=== PATIENT | female | born 1960 | race Caucasian/White ===

== ENCOUNTER 2019-08-05 09:03 | Day surgery (SDC) | payer OTHER ==
[2019-07-26 16:52] VITALS: BMI 24.7
--- NOTE | 2019-08-05 10:17 | OP ---
Operative Note - Note: Operative Date: 08/05/19 Pre-Operative Diagnosis: Left medial meniscus tear Operation: Left medial meniscectomy Post-Operative Diagnosis: Same as Pre-op Surgeon: Salomón aY Hog Cutter: Dawn Panchal Anesthesia: General Operative Report Dictated: Yes
[2019-08-05] MEDS ORDERED: BUPIVACAINE HCL 0.25% 125 MG/50 ML VIAL ONE (11:22)
[2019-08-05] MEDS ORDERED: MIDAZOLAM HCL 2 MG/2 ML SINGLE DOSE VIAL ONE (11:56)
[2019-08-05] MEDS ORDERED: LIDOCAINE HCL/PF 2% SDV 5ML VIAL ONE (11:57)
[2019-08-05] MEDS ORDERED: PROPOFOL 20 ML ONE ×2 (11:57)
[2019-08-05] MEDS ORDERED: ONDANSETRON 4 MG/2 ML VIAL ONE ×2 (12:17→12:52)
[2019-08-05] MEDS ORDERED: DEXAMETHASONE SOD PHOSPHATE 4 MG/1 ML VIAL ONE (12:17)
[2019-08-05] MEDS ORDERED: CLINDAMYCIN PHOSPHATE 600 MG/4 ML VIAL ONE ×2 (12:17)
[2019-08-05] MEDS ORDERED: KETOROLAC TROMETHAMINE 30 MG/1 ML VIAL ONE (12:17)
[2019-08-05] MEDS ORDERED: BUPIVACAINE HCL/PF 0.25% (2.5MG/ML) 10 ML VIAL IJ ONE (12:41)
[2019-08-05] MEDS ORDERED: oxyCODONE HCL 5 MG TABLET PO PRN ×2 (13:50)
[2019-08-05] MEDS ORDERED: ONDANSETRON 4 MG/2 ML VIAL IVPUSH PRN (13:50)
[2019-08-05] MEDS ORDERED: ACETAMINOPHEN 325 MG TABLET (FP) PO PRN (13:50)
--- NOTE | 2019-08-05 13:56 | OP ---
DATE OF OPERATION: 08/05/2019 POSTOPERATIVE DIAGNOSIS: Left knee medial meniscal tear. POSTOPERATIVE DIAGNOSIS: Left knee medial meniscal tear. PROCEDURE: Left knee arthroscopy with partial medial meniscectomy. SURGEON: Salomón Ruiz MD BALLOON DIPPER: XIANG Hernandez ANESTHESIA: General. POSTOPERATIVE CONDITION: Stable. COMPLICATIONS: None. BLOOD LOSS: Minimal. INDICATIONS: This is a pleasant woman who had been suffering from medial knee pain. MRI demonstrated medial meniscal tear. She was initially treated with conservative care but failed to improve. She elected for arthroscopy. Prior to surgery, the risks were discussed in detail including bleeding, infection, neurovascular injury, need for further surgery, postoperative pain and stiffness, progression of osteoarthritis. We discussed the possibility of meniscal re-tear, and we reviewed the postoperative rehabilitation protocol. I reviewed medical risks such as heart attack, stroke, DVT, PE, and . I addressed the use of perioperative antibiotics and DVT prophylaxis. I reviewed all of her questions and concerns. She voiced understanding and elected to proceed. DESCRIPTION OF PROCEDURE: Patient was brought to the operating room where general anesthetic was administered. Left lower extremity was then prepped and draped in the usual sterile fashion. A preoperative dose of antibiotics was given, and the usual time-out procedure was performed. The left knee was then marked out. A lateral portal was established. The arthroscope was then passed into the knee. Examination of the patellofemoral joint demonstrated moderate, diffuse partial-thickness articular cartilage loss. Passing the arthroscope into the knee demonstrated intact ACL and PCL. The arthroscope was passed medially. A medial portal was now established under spinal needle localization. The medial side was inspected. There was a complex tear noted involving the posterior horn and body of the medial meniscus. There was mild superficial articular wear on the tibial and femoral side. Utilizing a combination of meniscal biter and a shaver, this was debrided down to a stable base. The arthroscope was now passed into the lateral compartment. Here, no tears were seen. There was some slight fraying of the inner rim of the lateral meniscus. It was probed and found to be stable. At this point, the excess fluid was withdrawn from the knee. The portals were sutured using 3-0 nylon. Sterile dressings were placed. The patient was extubated and transferred to the recovery room in stable condition. SALOMÓN RUIZ M.D. [id number]
[2019-08-05] MEDS ORDERED: LACTATED RINGERS SOLUTION 1,000 ML IV SCH (14:00)
[2019-08-05 14:50] VITALS: TEMP 97.7
[2019-08-05 15:21] VITALS: BP 132/73; PULSE 89
== END 2019-08-05 15:27 | disposition home or self-care (01) ==
LOC: FASU 09:03
PROVIDERS: ATTEND Orthopaedic Surgery Sports Medicine
PROC: 0SBD4ZZ Excision of Left Knee Joint, Percutaneous Endoscopic Approach (ICD-10-PCS; principal; 2019-08-05 12:22)
DX: S83.242A Other tear of medial meniscus, current injury, left knee, initial encounter (principal); X58.XXXA Exposure to other specified factors, initial encounter; Y93.9 Activity, unspecified; Y92.9 Unspecified place or not applicable
CPT/HCPCS: 94760